=== PATIENT | female | born 1975 | race Caucasian/White ===

== ENCOUNTER 2021-05-21 20:09 | Emergency (ER) | payer SELFPAY ==
--- NOTE | 2021-05-21 20:14 | ECG_ITS ---
[facility] Test Date: 2021-05-21 Pat Name: Idalia Cameron Department: Room: Gender: Female Support Engineer: : 1975 Requested By: Fernando Enriquez Order Number: [id number] Ricarda MD: Dc Velasco M.D. Measurements Intervals Donie Rate: 84 P: 75 AK: 139 QRS: 52 QRSD: 109 T: 16 QT: 393 QTc: 466 Interpretive Statements SINUS RHYTHM LOW QRS VOLTAGE IN PRECORDIAL LEADS [QRS DEFLECTION < 1.0 mV IN CHEST LEADS] INCOMPLETE RIGHT BUNDLE BRANCH BLOCK [90+ ms QRS DURATION, TERMINAL R IN V1/V2, 40+ ms S IN I/aVL/V4/V5/V6] ST DEVIATION AND MODERATE T-WAVE ABNORMALITY, CONSIDER ANTERIOR ISCHEMIA [-0.1+ mV T WAVE IN V3/V4] No previous ECG available for comparison Electronically Signed On 05-21-2021 23:35:05 CDT by Dc Velasco M.D. [email or web address].[email or web address]/[id number]
--- NOTE | 2021-05-21 20:14 | XRR_ITS ---
PROCEDURE INFORMATION: Exam: XR Chest Exam date and time: 05/21/2021 8:14 PM Age: 45 years old Clinical indication: Shortness of breath; Sternal or substernal pain; Additional info: Cp TECHNIQUE: Imaging protocol: XR of the chest. Views: 1 view. COMPARISON: No relevant prior studies available. FINDINGS: Lungs: Lungs are clear. Pleural spaces: There is no pleural effusion or pneumothorax. Heart/Mediastinum: Cardiomediastinal contours are unremarkable. Bones/joints: Bones are unremarkable. XR/XR chest 1V portable [id number] IMPRESSION: No acute findings.
[2021-05-21 20:25] VITALS: BP 117/75; PULSE 93; RESP 17; TEMP 36.4; O2SAT 99; BMI 18.8
--- NOTE | 2021-05-21 20:31 | W.ED.CHESTPA ---
HPI - Chest Pain General: Chief Complaint: Chest Pain Stated Complaint: cp, sob Time Seen by Provider: 05/21/21 20:19 Source: patient Mode of arrival: ambulatory Limitations: no limitations History of Present Illness: HPI narrative: 45-year-old female states she been having sharp chest pain since 3 AM. States pain has been constant nature and rates it a 7 out of 10 currently. Patient also appears quite anxious and states she does have some history of anxiety. She denies any heart history. She does not take any medicine is a non-smoker. She denies any nausea or shortness of breath. Denies any worsening improving factors. Associated symptoms: Deny abdominal pain, dyspnea, fever(s), nausea or vomiting Review of Systems Const: Denies: fever(s), chills, body aches or change in appetite Eyes: Denies: blurry vision or eye discomfort ENMT: Denies: throat pain or dental pain Card: Reports: chest pain Resp: Denies: dyspnea GI: Denies: abdominal pain, nausea, vomiting or diarrhea : Denies: dysuria Musc: Denies: neck pain or back pain Skin/Breast: Denies: rash Neuro: Denies: headache(s) Psych: Denies: depression Cesar/Lymph: Denies: easy bruising All/Imm: Denies: urticaria [facility] ED Female Reproductive History: Date of last menstrual period: 05/14/21 Physical Exam Const: COMMON NORMALS: no acute distress, patient oriented x3 and healthy appearing HENMT: COMMON NORMALS: normocephalic and atraumatic HEAD & SCALP: normocephalic and atraumatic Eye: COMMON NORMALS: Equal, round and reactive pupils present and EOMs intact bilaterally PUPIL: Yes Equal, round and reactive pupils present Neck/C-Spine: COMMON NORMALS: full ROM and supple Chest: COMMONS NORMALS: normal inspection of the chest and normal palpation of entire chest wall Resp: COMMON NORMALS: normal respiratory effort, No retractions, No use of accessory muscles and clear to auscultation bilaterally AUSCULTATION: clear to auscultation bilaterally Cardio: COMMON NORMALS: regular rate, regular rhythm and No murmurs present (Cardio) RATE: regular rate RHYTHM: regular rhythm GI: COMMON NORMALS: Normal to inspection, nondistended, normoactive bowel sounds present, Soft to palpation, non-tender and no masses PALPATION: Yes Soft to palpation Extremity: COMMON NORMALS: normal to inspection and full ROM Neuro: COMMON NORMALS: patient oriented x3, moves all extremities and no focal motor deficits Psych: COMMON NORMALS: mental status grossly normal, Normal thought process present and cooperative THOUGHT PROCESS: Normal thought process present Skin: COMMON NORMALS: no rashes or lesions noted and no wounds GENERAL SKIN EXAM: no rashes or lesions noted Course Vital Signs: Vital signs: Vital Signs Temperature 97.5 F L 05/21/21 20:25 Pulse Rate 72 05/21/21 22:46 Respiratory Rate 17 05/21/21 22:46 Blood Pressure 108/59 05/21/21 22:46 Pulse Oximetry 93 05/21/21 22:46 MDM - Chest Pain MDM Narrative: Medical decision making narrative: Patient presents for chest pains atypical in nature and is likely anxiety. She is well-appearing here and is much improved and has no pain currently. Initial repeat troponins are negative D-dimer is negative as well. She is stable for discharge and return if worsening. Lab Data: Labs: Lab Results 05/21/21 05/21/21 05/21/21 Range/Units 20:26 20:26 20:26 WBC 10.7 H (4.0-10.0) 10^3/ uL RBC 5.34 H (4.1-5.3) 10^6/u L Hgb 15.5 H (11.5-15.3) g/dL Hct 48.2 H (37.0-47.0) % MCV 90.3 (81-99) fL MCH 29.0 (28.0-34.0) pg MCHC 32.2 (30.0-36.0) g/dL RDW 13.2 (12.1-15.1) % Plt Count 240 (130-400) 10^3/c mm MPV 11.9 H (7.4-10.4) fL Neut % (Auto) 76.2 % Lymph % (Auto) 18.2 % Duc[place]ne % (Auto) 4.7 % Eos % (Auto) 0.3 % Baso % (Auto) 0.3 % Neut # (Auto) 8.17 H (1.8-7.7) 10^3/u L Lymph # (Auto) 2.0 (0.8-4.8) 10^3/u L [place]ne # (Auto) 0.5 (0.2-0.9) 10^3/u L Eos # (Auto) 0.0 (0.0-0.8) 10^3/u L Baso # (Auto) 0.0 (0.0-0.1) 10^3/u L Nucleated RBC % (a uto) 0 % Nucleated RBCs # 0.0 /100WBC D-Dimer (0-0.59) ug/mIFE U Sodium 140 (136-145) mmol/L Potassium 4.0 (3.5-5.1) mmol/L Chloride 107 (98-107) mmol/L Carbon Dioxide 22 (22-29) mmol/L Anion Gap 15.0 (5-19) BUN 4 L (6-20) mg/dL Creatinine 0.6 (0.5-0.9) mg/dL GFR Calculation 109.1 (90-130) mL/min Glucose 98 (65-115) mg/dL Calculated Osmolal ity 287 (285-295) mOsm/k g Calcium 8.9 (8.5-10.5) mg/dL Total Bilirubin 0.4 (0.15-1.2) mg/dL AST 23 (0-32) U/L ALT 21 (0-33) U/L Alkaline Phosphata se 82 (35-105) IU/L Troponin T Baselin e 6 (0-10) ng/L Troponin T 120 Min [place] (0-10) ng/L Delta Troponin T (0-10) ABS# Total Protein 6.8 (6.6-8.7) g/dL Albumin 4.4 (3.5-5.2) g/dL Globulin 2.4 (1.3-4.6) g/dL 05/21/21 05/21/21 Range/Units 20:26 22:57 WBC (4.0-10.0) 10^3/ uL RBC (4.1-5.3) 10^6/u L Hgb (11.5-15.3) g/dL Hct (37.0-47.0) % MCV (81-99) fL MCH (28.0-34.0) pg MCHC (30.0-36.0) g/dL RDW (12.1-15.1) % Plt Count (130-400) 10^3/c mm MPV (7.4-10.4) fL Neut % (Auto) % Lymph % (Auto) % [place]ne % (Auto) % Eos % (Auto) % Baso % (Auto) % Neut # (Auto) (1.8-7.7) 10^3/u L Lymph # (Auto) (0.8-4.8) 10^3/u L [place] # (Auto) (0.2-0.9) 10^3/u L Eos # (Auto) (0.0-0.8) 10^3/u L Baso # (Auto) (0.0-0.1) 10^3/u L Nucleated RBC % (a uto) % Nucleated RBCs # /100WBC D-Dimer <= 0.27 (0-0.59) ug/mIFE U Sodium (136-145) mmol/L Potassium (3.5-5.1) mmol/L Chloride (98-107) mmol/L Carbon Dioxide (22-29) mmol/L Anion Gap (5-19) BUN (6-20) mg/dL Creatinine (0.5-0.9) mg/dL GFR Calculation (90-130) mL/min Glucose (65-115) mg/dL Calculated Osmolal ity (285-295) mOsm/k g Calcium (8.5-10.5) mg/dL Total Bilirubin (0.15-1.2) mg/dL AST (0-32) U/L ALT (0-33) U/L Alkaline Phosphata se (35-105) IU/L Troponin T Baselin e (0-10) ng/L Troponin T 120 Min [place] 6.00 (0-10) ng/L Delta Troponin T 0 (0-10) ABS# Total Protein (6.6-8.7) g/dL Albumin (3.5-5.2) g/dL Globulin (1.3-4.6) g/dL Imaging Data^: CXR: Attestation: I personally reviewed and interpreted this imaging study as follows: My impression: no acute abnormality EKG Data^: EKG 1: Attestation: I personally reviewed and interpreted this EKG as follows: EKG interpretation date: 05/21/21 EKG interpretation time: 20:28 Interpretation: nsr hr [address] depression in v3 no st elevation qrs 109 qtc 434 EKG 2: Attestation: I personally reviewed and interpreted this EKG as follows: EKG interpretation date: 05/21/21 EKG interpretation time: 22:30 Interpretation: nsr hr [address] or t wave abnormalities qrs 125 qtc 462 Discharge Plan Discharge Patient Disposition: Home Clinical Impression: Chest pain Qualifiers: Chest pain type: unspecified Qualified Code(s): R07.9 - Chest pain, unspecified Condition: Stable Prescriptions: No Action No Known Home Medications RF: 0 Discharge Orders: Discharge ED (Routine); Ordered 05/21/21 Ordered By: Fernando Enriquez Referrals: Jaylon Duffy FNP-BC [Primary Care Provider] - Discharge Diet: Advance as tolerated Discharge Activity: Resume usual activity Patient Instructions: Chest Pain (ED) Coding Level of Care Code ED Manager Book for Chg Fwd Exam Comprehensive
[2021-05-21 20:43] LABS: Basophils % 0.3 %; Eosinophils % 0.3 %; Hematocrit 48.2 % (37.0-47.0); Hemoglobin 15.5 g/dL (11.5-15.3); Lymphocytes % 18.2 %; Mean Corpuscular HGB Conc 32.2 g/dL (30.0-36.0); Mean Corpuscular Volume 90.3 fL (81-99); Mean Platelet Volume 11.9 fL (7.4-10.4); Monocytes # 0.5 10^3/uL (0.2-0.9); Monocytes % 4.7 %; Neutrophils # 8.17 10^3/uL (1.8-7.7); Neutrophils % 76.2 %; Nucleated Red Blood Cells % 0 %; Platelet Count 240 10^3/cmm (130-400); Red Blood Count 5.34 10^6/uL (4.1-5.3); Red Cell Distribution Width 13.2 % (12.1-15.1); White Blood Count 10.7 10^3/uL (4.0-10.0)
[2021-05-21 20:59] LABS: Troponin(5th) Baseline 6 ng/L (0-10)
[2021-05-21 21:00] LABS: Alanine Aminotransferase 21 U/L (0-33); Albumin Level 4.4 g/dL (3.5-5.2); Alkaline Phosphatase 82 IU/L (35-105); Aspartate Amino Transferase 23 U/L (0-32); Blood Urea Nitrogen 4 mg/dL (6-20); Calcium 8.9 mg/dL (8.5-10.5); Carbon Dioxide 22 mmol/L (22-29); Chloride 107 mmol/L (98-107); Globulin 2.4 g/dL (1.3-4.6); Glomerular Filtration Rate 109.1 mL/min (90-130); Glucose 98 mg/dL (65-115); Osmolality Calculated 287 mOsm/kg (285-295); Sodium 140 mmol/L (136-145); Total Bilirubin 0.4 mg/dL (0.15-1.2); Total Protein 6.8 g/dL (6.6-8.7)
[2021-05-21 21:07] LABS: D Dimer <= 0.27 ug/mIFEU (0-0.59)
--- NOTE | 2021-05-21 22:14 | ECG_ITS ---
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 Measurements Intervals Victor Rate: 70 P: 61 GA: 137 QRS: 60 QRSD: 125 T: 26 QT: 440 QTc: 478 Interpretive Statements SINUS RHYTHM RIGHT BUNDLE BRANCH BLOCK [120+ ms QRS DURATION, UPRIGHT V1, 40+ ms S IN I/aVL/V4/V5/V6] Compared to ECG 05/21/2021 20:28:07 Right bundle-branch block now present Incomplete right bundle-branch block no longer present T-wave abnormality no longer present Possible ischemia no longer present Electronically Signed On 05-21-2021 23:45:00 CDT by Dc Velasco M.D. [id number]
[2021-05-21 22:46] VITALS: BP 108/59; PULSE 72; RESP 17; O2SAT 93
[2021-05-21 23:20] LABS: Troponin 5 2HR Delta 0 ABS# (0-10)
[2021-05-22 00:07] VITALS: BP 112/60; PULSE 68; RESP 12; O2SAT 95
== END 2021-05-22 00:07 | disposition home or self-care (01) ==
PROVIDERS: Emergency Provider Emergency Medicine; PCP Nurse Practitioner Family
DX: R07.9 Chest pain, unspecified (principal)
CPT/HCPCS: 71045; 80053; 84484; 85025; 85378; 93005; 99283

== ENCOUNTER 2023-12-19 08:44 | Outpatient (CLI) | payer MEDICAID, SELFPAY ==
--- NOTE | 2023-12-19 08:45 | MR_ITS ---
WS: [id number] MRI HEAD WITHOUT CONTRAST TECHNIQUE: Sagittal T1, T2 axial, T2 axial FLAIR, axial and coronal T1 images, axial susceptibility w eighted imaging, axial diffusion weighted images, and coronal T2 images were obtained. Contrast not a dministered due to patient reported history of allergic reaction with contrast previously. Patient do es not remember details. CLINICAL INFORMATION: R55 - Syncope and collapse COMPARISON: None. FINDINGS: No evidence of restricted diffusion to suggest acute ischemia. Ventricular system and basilar cistern s are patent. 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 This is nonspe cific and recommend further evaluation with gadolinium with premedication. No evidence of obstructive hydrocephalus. Normal posterior fossa. Normal vascular flow voids at the skull base. No extra-axial fluid collection s. Paranasal sinuses are well aerated. Normal posterior nasopharynx and parapharyngeal fat. Mastoid a ir cells are well aerated. No hemosiderin on the susceptibly weighted images. Normal optic chiasm and pituitary infundibulum. Temporal lobes and hippocampal formations are normal in appearance. Noncontrast proximal 7th and 8th cranial nerves are normal in appearance. Normal trige robert nerve root entry zones. No evidence of an IAC or CP angle mass. IMPRESSION: 1. 6 x 6 mm T2 hyperintense of ependymal nodule RIGHT frontal horn. This is nonspecific and recommen d further evaluation with gadolinium if possible with premedication. Differential considerations incl ude subependymoma, ependymoma, subependymoma nodule especially with history of tuberous sclerosis. Is olated bob matter heterotopia less likely considering the degree of T2 hyperintensity. Recommend cor relation with clinical history. 2. No evidence of obstructive hydrocephalus. 3. No other suspicious intracranial signal abnormalities. 4. Noncontrast IACs are normal appearance. 5. Paranasal sinuses and mastoid air cells are well aerated. 6. No other suspicious findings.
== END 2023-12-19 08:45 | disposition home or self-care (01) ==
PROVIDERS: PCP Internal Medicine; Visit Provider Psychiatry & Neurology Neurology
DX: R55 Syncope and collapse (principal)
CPT/HCPCS: 70551

== ENCOUNTER 2023-12-19 08:44 | Outpatient (CLI) | payer MEDICAID, SELFPAY ==
--- NOTE | 2023-12-19 15:00 | USCV_ITS ---
Idalia Cameron Age: 48 Gender: F : 1975 Exam Date: 12/19/2023 10:06 Ordering Phys: John Day MD Technologist: CT Exam Location: [facility] [place] Indication: syncope Risk Factors: Previous Vascular Surgery: Right Brachial BP: / Left Brachial BP: / Right Left Velocity (cm/s) Spectral Plaque Velocity (cm/s) Spectral Plaque Syst/Diast Broadening Syst/Diast Broadening 93.40/ 25.90 Prox CCA 90.40 / 30.00 86.70/ 28.00 Mid CCA 82.20 / 31.50 73.60/ 25.90 Distal CCA 75.80 / 29.40 80.20/ 30.20 Prox ICA 73.70 / 23.00 108.20/43.10 Mid ICA 75.80 / 35.70 84.30/ 36.60 Distal ICA 77.90 / 14.60 75.80 ECA 1.10 ICA/CCA 0.80 Antegrade Vertebral Antegrade 51.80/ 19.30 cm/s 52.50/ 16.00 cm/s Tri Subclavian Tri FINDINGS Comparison: none available. No significant elevation of systolic or diastolic velocities. Waveforms are normal. No significant amount of calcified plaque or intimal thickening identified. CONCLUSIONS Normal carotid doppler ultrasound. Dr. Elisa Schwarz DO (Electronically Signed) Final Date: 19 December 2023 11:40 S
== END 2023-12-19 08:45 | disposition home or self-care (01) ==
PROVIDERS: PCP Internal Medicine; Visit Provider Psychiatry & Neurology Neurology
DX: R55 Syncope and collapse (principal)
CPT/HCPCS: 93880

== ENCOUNTER 2024-02-14 11:51 | Outpatient (CLI) | payer MEDICAID, SELFPAY ==
--- NOTE | 2024-02-14 11:45 | MR_ITS ---
WS: [id number] MRI HEAD WITHOUT CONTRAST TECHNIQUE: Sagittal T1, T2 axial, T2 axial FLAIR, axial and coronal T1 images, axial susceptibility w eighted imaging, axial diffusion weighted images, and coronal T2 images were obtained. CLINICAL INFORMATION: R55 - Syncope and collapse COMPARISON: MRI 12/19/2023 FINDINGS: Patient refused contrast due to prior contrast reaction. Previously described T2 hyperintense subendymal nodule in the RIGHT frontal horn is unchanged in appe arance compared to previous. Differential considerations are unchanged and include subependymoma, epe ndymoma, subependymal nodule especially if history of tuberous sclerosis. Isolated bob matter hetero topia less likely. Recommend continued surveillance No evidence of restricted diffusion to suggest acute ischemia. Ventricular system and basal cisterns are patent. Normal posterior fossa. Normal vascular flow voids at the skull base. No extra-axial flui d collections. No evidence of mass or mass effect. Paranasal sinuses and mastoid air cells are well a erated. No hemosiderin on susceptibly weighted images. Normal optic chiasm and pituitary infundibulum . Temporal lobes and hippocampal formations are normal in appearance. IMPRESSION: Gadolinium not administered due to history of contrast allergy. Premedication not adminis tered. 1. Previously described 6 x 6 mm T2 hyperintense subependymal nodule in the RIGHT frontal horn is un changed. Differential considerations described above. Recommend continued surveillance with 6 to 12-m [facility] follow-up. 2. No hydrocephalus. 3. No other significant changes.
== END 2024-02-14 11:52 | disposition home or self-care (01) ==
LOC: RAD 11:51
PROVIDERS: PCP Internal Medicine; Visit Provider Psychiatry & Neurology Neurology
DX: R55 Syncope and collapse (principal)
CPT/HCPCS: 70551